=== PATIENT | male | born 1945 | race Caucasian/White ===

== ENCOUNTER → 2020-12-11 10:54 | Outpatient (CLI) | payer SELFPAY, OTHER ==
--- NOTE | 2020-12-11 10:58 | RAD_ITS ---
INDICATION: COUGH EXAMINATION/TECHNIQUE: X-RAY - XR Chest 2 Views COMPARISON: None. FINDINGS: LINES/DEVICES: None. LUNGS: No consolidation, edema or effusion. No pneumothorax. MEDIASTINUM AND CARDIOVASCULAR STRUCTURES: Cardiac silhouette not enlarged. Central airways and mediastinal contour are unremarkable. BONES AND SOFT TISSUES: Unremarkable. RAD/Chest PA and Lateral IMPRESSION: No radiographic evidence of acute cardiopulmonary disease. Electronically Signed: Ezra Escalante MD at 13:23 EDT Tel , Service support ,
== END ==
PROVIDERS: PCP Family Medicine; Referring Provider Otolaryngology Otolaryngology/Facial Plastic Surgery; Visit Provider Otolaryngology Otolaryngology/Facial Plastic Surgery
DX: R05 Cough (principal)
CPT/HCPCS: 71046

== ENCOUNTER → 2022-03-25 | Outpatient (CLI) | payer SELFPAY, OTHER ==
--- NOTE | 2022-03-25 07:25 | CT_ITS ---
EXAM: CT RIGHT UPPER EXTREMITY WITHOUT INTRAVENOUS CONTRAST CLINICAL INDICATION: OSTEOARTHRITIS TECHNIQUE: Helically acquired images were obtained of the right upper extremity without intravenous contrast. 2-D reformats were performed by the technologist. CTDIvol = ( 37.26 ) mGy, DLP = ( 926.29 ) mGycm This CT exam was performed using one or more of the following dose reduction techniques: automated exposure control, adjustment of the mA and/or kV according to patient size, and/or use of iterative reconstruction technique. This report was created using [employer] technology. COMPARISON: None. FINDINGS: BONES/JOINTS: Moderate to severe osteoarthrosis of the glenohumeral joint. There is glenohumeral instability with anterior subluxation of the humeral head relative to the glenoid. 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 Moderate to severe hypertrophic degenerative changes involving the acromioclavicular joint. Superior subluxation of the humeral head likely due to full-thickness rotator cuff tear with formation of a pseudoarticulation between the humeral head and the undersurface of the acromion. No acute fracture. SOFT TISSUES: Unremarkable. No soft tissue swelling or gas. No radiopaque foreign body. CT/Extremity Upper without Contra IMPRESSION: 1. Moderate to severe osteoarthrosis of the glenohumeral joint. There is glenohumeral instability with anterior subluxation of the humeral head relative to the glenoid. 2. Moderate to severe hypertrophic degenerative changes involving the acromioclavicular joint. 3. Full-thickness supraspinatus tendon tear with associated superior subluxation humeral head forming a pseudoarticulation with the undersurface of the acromion. Electronically Signed: Shiv Puentes MD at 2:39 EST ,
== END | disposition home or self-care (01) ==
PROVIDERS: PCP Family Medicine; Visit Provider Student in an Organized Health Care Education/Training Program
DX: M19.011 Primary osteoarthritis, right shoulder (principal); M75.41 Impingement syndrome of right shoulder
CPT/HCPCS: 73200